=== PATIENT | female | born 1980 | race Caucasian/White ===

== ENCOUNTER 2016-09-08 17:44 | Emergency (ER) | payer MEDICAID, OTHER ==
[~2016-09-08] VITALS: Ht 167.6 cm; Wt 76.9 kg
[~2016-09-08 17:44] MED LIST: CIPR0.3S LEFT EAR
[2016-09-08 17:53] VITALS: BP 138/92; PULSE 114; RESP 18; TEMP 98.6; O2SAT 100
== END 2016-09-08 18:30 | disposition left against medical advice (07) ==
LOC: PHED 17:44
DX: Z53.21 Procedure and treatment not carried out due to patient leaving prior to being seen by health care provider (principal)
CPT/HCPCS: 99281